=== PATIENT | female | born 1975 | race Caucasian/White ===

== ENCOUNTER 2022-07-14 23:16 | Emergency (ER) | payer MEDICAID ==
[2022-07-14] MEDS ORDERED: HYDROmorphone 0.5 MG/0.5 ML Syringe IVPUSH ONE (23:38)
[2022-07-14] MEDS ORDERED: Ondansetron 4 MG/2 ML SDV IVPUSH ONE (23:38)
[2022-07-14] MEDS ORDERED: Sodium Chloride 0.9% 1,000 ML IV SCH (23:45)
[2022-07-15] MEDS ORDERED: HYDROmorphone 1 MG/ML Syringe IVPUSH ONE ×2 (00:04→04:51)
[2022-07-15] MEDS ORDERED: HYDROmorphone 1 MG/ML Syringe ONE (00:07)
[2022-07-15] MEDS ORDERED: LORazepam 2 MG/ML SDV IVPUSH STA ×3 (00:18→05:33)
[2022-07-15] MEDS ORDERED: Rocuronium 50 MG/5 ML Vial IVPUSH STA (00:58)
[2022-07-15] MEDS ORDERED: Propofol 200 MG/20 ML SDV IVPUSH STA (00:58)
[2022-07-15] MEDS ORDERED: Propofol 200 MG/20 ML SDV ONE ×2 (00:59→09:30)
[2022-07-15] MEDS ORDERED: LORazepam 2 MG/ML SDV IVPUSH ONE ×7 (01:50→08:45)
[2022-07-15] MEDS ORDERED: OLANZapine 10 MG Vial IM STA (06:08)
[2022-07-15] MEDS ORDERED: LORazepam 2 MG/ML SDV ONE ×2 (08:44→09:17)
[2022-07-15] MEDS ORDERED: Iopamidol 612 MG/ML 50 ML SDV IVPUSH ONE (09:00)
[2022-07-15] MEDS ORDERED: Iopamidol 612 MG/ML 100 ML Bottle IVPUSH ONE (09:00)
[2022-07-15] MEDS ORDERED: Ketamine 500 mg/10 ML MDV ONE (09:30)
[2022-07-15] MEDS ORDERED: Succinylcholine 200 MG/10 ML MDV ONE (09:30)
[2022-07-15] MEDS ORDERED: propofoL 100 ML ONE ×2 (09:31→11:53)
[2022-07-15] MEDS ORDERED: Potassium Chloride 10 MEQ in Premix Bag 1 BAG IV ONE (11:08)
[2022-07-15] MEDS ORDERED: Piperacillin/Tazobactam 4.5 GM in Sodium Chloride 0.9% 100 ML IV ONE (11:12)
[2022-07-15] MEDS ORDERED: Potassium Chloride 100 ML ONE (12:28)
== END 2022-07-15 12:30 ==
LOC: JD.ED 23:16
DX: S81.012A Laceration without foreign body, left knee, initial encounter (principal); R41.82 Altered mental status, unspecified; R73.9 Hyperglycemia, unspecified; E66.9 Obesity, unspecified; Z68.30 Body mass index [BMI] 30.0-30.9, adult; Z20.822 Contact with and (suspected) exposure to COVID-19; W19.XXXA Unspecified fall, initial encounter
CPT/HCPCS: 12002; 31500; 36415; 36600; 70450; 71045; 71260; 72125; 74177; 80053; 80143; 80179; 80306; 80307; 81001; 81025; 82550; 82803; 82947; 83605; 83735; 84484; 85025; 85610; 85730; 86140; 87040; 87086; 87635; 93005; 96361; 96365; 96368; 96372; 96375; 96376; 99285; J0330; J1170; J2060; J2405; J2543; J2704; J3480; J3490; J7030; Q9967; 12001; 93010; U0002

== ENCOUNTER 2023-08-25 15:45 | Emergency (ER) | payer MEDICAID ==
[2023-08-25] MEDS ORDERED: Lactated Ringers 1,000 ML IV ONE (16:55)
[2023-08-25] MEDS ORDERED: diphenhydrAMINE 50 MG/ML SDV IVPUSH ONE (17:05)
[2023-08-25] MEDS ORDERED: Metoclopramide 10 MG/2 ML SDV IVPUSH ONE (17:05)
[2023-08-25] MEDS ORDERED: Ketorolac 30 MG/ML SDV IVPUSH ONE (17:33)
[2023-08-25 17:35] LABS: BASOPHILS PERCENT AUTO 0.3 % (0.0-1.0); HEMOGLOBIN 13.9 gm/dl (12.0-16.0); IMMATURE GRAN ABSOLUTE AUTO 0.05 K/mm3 (0.00-0.05); IMMATURE GRAN PERCENT AUTO 0.4 % (0.0-0.4); LYMPHOCYTES ABSOLUTE AUTO 1.1 K/mm3 (1.0-4.8); LYMPHOCYTES PERCENT AUTO 9.5 % (24.0-44.0); MEAN CORPUSCULAR HEMOGLOBIN 30.3 pg (28.0-32.0); MEAN CORPUSCULAR HGB CONC 35.6 g/dl (32.0-36.0); MEAN PLATELET VOLUME 10.6 fl (9.4-12.3); MONOCYTES ABSOLUTE AUTO 0.2 K/mm3 (0.0-0.8); MONOCYTES PERCENT AUTO 1.9 % (0.0-8.0); NEUTROPHILS ABSOLUTE AUTO 10.5 K/mm3 (1.8-7.7); NEUTROPHILS PERCENT AUTO 87.9 % (41.0-71.0); PLATELET COUNT,PLT 277 K/mm3 (150-400); RED BLOOD CELL COUNT 4.59 M/mm3 (4.10-5.30); WHITE BLOOD CELL COUNT,WBC 11.95 K/mm3 (3.9-11.3)
[2023-08-25] MEDS ORDERED: Famotidine 20 MG/2 ML SDV IVPUSH ONE (17:51)
[2023-08-25] MEDS ORDERED: Morphine 4 MG/ML Syringe IVPUSH ONE (17:51)
[2023-08-25 18:04] LABS: LACTIC ACID 1.1 mmol/L (0.4-2.0)
[2023-08-25 18:10] LABS: ALANINE AMINOTRANSFERASE,ALT 45 U/L (14-59); ALBUMIN 3.9 g/dl (3.4-5.0); ALKALINE PHOSPHATASE 80 U/L (46-116); ANION GAP 16.9 (5-15); ASPARTATE AMNIOTRANSFERASE,AST 35 U/L (15-37); BILIRUBIN TOTAL 0.4 mg/dL (0.2-1.0); BLOOD UREA NITROGEN,BUN 12 mg/dL (7-18); CALCIUM 8.9 mg/dL (8.5-10.1); CARBON DIOXIDE,CO2 24 mEq/L (21-32); CHLORIDE,CL 105 mEq/L (98-107); CREATININE 0.8 mg/dL (0.55-1.02); ESTIMATED GFR 90 mL/min (>60); GLUCOSE RANDOM 145 mg/dL (70-99); LIPASE 12 U/L (16-77); POTASSIUM,K 3.9 mEq/L (3.5-5.1); PROTEIN TOTAL,TP 7.7 g/dl (6.4-8.2); SODIUM,NA 142 mEq/L (136-145)
[2023-08-25] MEDS ORDERED: Iopamidol 612 MG/ML 100 ML Bottle IVPUSH ONE (18:30)
[2023-08-25] MEDS ORDERED: Sodium Chloride 0.9% 10 ML Syringe FLUSH ONE (18:30)
[2023-08-25 19:46] LABS: APPEARANCE,URINE CLEAR (Clear); BILIRUBIN,URINE NEGATIVE (Negative); COLOR,URINE YELLOW (Yellow); GLUCOSE,URINE NEGATIVE (Negative); KETONES,URINE NEGATIVE (Negative); LEUKOCYTE ESTERASE,URINE NEGATIVE (Negative); NITRITE,URINE NEGATIVE (Negative); OCCULT BLOOD,URINE TRACE-INTACT (Negative); PH,URINE 7.5 (5.0-8.0); PROTEIN,URINE TRACE (Negative); UROBILINOGEN,URINE 0.2 (0.2-1.0)
[2023-08-25 20:22] LABS: BACTERIA,URINE FEW /hpf (FEW); SQUAMOUS EPITHELIAL CELLS,UR 0-5 /hpf (0-5); WBC,URINE 0-5 /hpf (0-5)
[2023-08-25 20:23] LABS: MUCUS,URINE FEW /hpf (FEW)
== END 2023-08-25 21:52 | disposition home or self-care (01) ==
LOC: JD.ED 15:45
DX: R10.84 Generalized abdominal pain (principal); E66.9 Obesity, unspecified; Z88.8 Allergy status to other drugs, medicaments and biological substances; Z79.899 Other long term (current) drug therapy
CPT/HCPCS: 36415; 74177; 80053; 81001; 83605; 83690; 85025; 96361; 96374; 96375; 99285; J1200; J1885; J2270; J2765; J3490; J7120; Q9967; 99284